=== PATIENT | male | born 1965 | race Two or more races ===

== ENCOUNTER 2022-01-27 20:58 | Emergency (ER) | payer OTHER ==
[~2022-01-27] VITALS: Ht 170.2 cm; Wt 77.1 kg
--- NOTE | 2022-01-27 21:20 | NUR ---
[id number]. R HAND 3RD DIGIT LACERATION BY NUTRIBULLET BLADE. UNKNOWN TETANUS. PT AWAKE A/OX3. TOLERATING R/A WELL WITH NO RESP DISTRESS. SAFETY MEASURES IN PLACE.
[2022-01-27] MEDS ORDERED: LIDOCAINE HCL/MPF 1% 30 ML VIAL IJ ONE (21:48)
[2022-01-27] MEDS ORDERED: ONDANSETRON HCL/PF 4 MG/2 ML VIAL ONE (21:49)
[2022-01-27] MEDS ORDERED: MORPHINE SULFATE INJ 4 MG/ML DISP.SYRIN ONE (21:49)
[2022-01-27] MEDS ORDERED: TDAP [DIPH/PERTUSSIS/TET] 0.5 ML VIAL IM ONE ×2 (21:50→22:00)
[2022-01-27] MEDS ORDERED: LORAZEPAM INJ 2 MG/ML VIAL ONE (21:50)
[2022-01-27] MEDS ORDERED: MORPHINE SULFATE INJ 2 MG/ML DISP.SYRIN IV ONE (22:00)
[2022-01-27] MEDS ORDERED: LORAZEPAM INJ 2 MG/ML VIAL IV ONE (22:00)
[2022-01-27] MEDS ORDERED: ONDANSETRON HCL/PF 4 MG/2 ML VIAL IVP ONE (22:00)
[2022-01-27] MEDS ORDERED: LIDOCAINE 2% 20 ML MDV TP ONE (22:00)
--- NOTE | 2022-01-27 23:01 | NUR ---
LAZARO MAR AT PT'S BEDSIDE FOR SUTURES TO RIGHT THIRD DIGIT.
[2022-01-27] MEDS ORDERED: CEPH500C2 PO (23:16)
--- NOTE | 2022-01-27 23:21 | NUR ---
URINE SENT TO LAB
--- NOTE | 2022-01-27 23:21 | NUR ---
[facility] COLLECTED
[2022-01-27 23:30] LABS: BASOPHILS % (AUTO) 0.4 % (0.0-2.0); EOSINOPHILS % (AUTO) 1.8 % (0.0-6.0); HEMATOCRIT 41 % (39-51); HEMOGLOBIN 13.7 g/dL (13.5-17.5); LYMPHOCYTES # (AUTO) 1.4 K/uL (0.8-4.8); LYMPHOCYTES % (AUTO) 20.6 % (20.0-44.0); MEAN CORPUSCULAR HGB CONC 33 g/dl (31.0-36.0); MEAN CORPUSCULAR VOLUME 89 fL (80-96); MONOCYTES # (AUTO) 0.7 K/uL (0.1-1.30); MONOCYTES % (AUTO) 9.8 % (2.0-12.0); NEUTROPHILS # (AUTO) 4.7 K/uL (1.8-8.9); NEUTROPHILS % (AUTO) 67.4 % (43.0-81.0); PLATELET COUNT (AUTO) 250 K/uL (150-450); WHITE BLOOD COUNT (AUTO) 6.9 K/uL (4.3-11.0)
[2022-01-27] MEDS ORDERED: CEPHALEXIN MONOHYDRATE 500 MG CAPSULE PO ONE (23:30)
[2022-01-27 23:46] LABS: ACETAMINOPHEN 0 ug/ml (10-30); ALANINE AMINOTRANSFERASE 42 U/L (12-78); ALBUMIN 3.4 g/dL (3.4-5.0); ALCOHOL, BLOOD < 3 mg/dL (0-0); ALKALINE PHOSPHATASE 78 U/L (46-116); ASPARTATE AMINOTRANSFERASE 32 U/L (15-37); BILIRUBIN,DIRECT 0.2 mg/dL (0.0-0.2); BILIRUBIN,TOTAL 0.6 mg/dL (0.2-1.0); CALCIUM, SERUM 8.5 mg/dL (8.5-10.1); CARBON DIOXIDE 30 mmol/L (21-32); CHLORIDE 101 mmol/L (98-107); CREATININE 0.8 mg/dL (0.6-1.3); GLUCOSE 95 mg/dL (74-106); POTASSIUM 3.6 mmol/L (3.5-5.1); SODIUM SERUM 135 mmol/L (136-145); TOTAL PROTEIN, SERUM 7.2 g/dL (6.4-8.2); UREA NITROGEN, BLOOD 18 mg/dL (7-18)
[2022-01-27 23:56] LABS: BILIRUBIN,URINE NEGATIVE (NEGATIVE); COLOR,URINE YELLOW (YELLOW); LEUKOCYTE ESTERASE ,URINE NEGATIVE (NEGATIVE); NITRITE, URINE NEGATIVE (NEGATIVE); PH,URINE 6.5 (5.0-8.0); PROTEIN,URINE NEGATIVE (NEGATIVE); UGLUCOSE NEGATIVE (NEGATIVE); UROBILINOGEN,URINE 0.2 EU/dL (0.2)
[2022-01-28] LABS: BACTERIA,URINE Rare /HPF (None Seen); RBC,URINE 0-2 /HPF (0-2); SQUAMOUS EPITHELIAL CELL,UR Few /HPF (None Seen)
--- NOTE | 2022-01-28 06:53 | NUR ---
PT SLEEPIING BUT ARROUSABLE THROUGHOUT THE NIGHT. VSS. PT IN NO ACUTE DISTRESS AT THIS TIME.
--- NOTE | 2022-01-28 07:20 | NUR ---
RECEIVED PT FROM [facility] AND EASY WATING FOR TO BE MORE AWAKE
--- NOTE | 2022-01-28 09:01 | NUR ---
PT ASLEEPY NO SOB OR DISTRESS
[2022-01-28] MEDS ORDERED: CEPHALEXIN MONOHYDRATE 500 MG CAPSULE PO ONE (09:07)
--- NOTE | 2022-01-28 09:45 | NUR ---
FULLY AWAKE AND ALERT D/C INSTRACTION GIVEN TO PT FULLY AND VERBLIZED UNDERSTOOD D/C HOME WITH RX AND FALLOW UP CARE
[2022-01-28 10:07] VITALS: BP 137/87
== END 2022-01-28 10:07 | disposition home or self-care (01) ==
LOC: ER 21:10
DX: S61.212A Laceration without foreign body of right middle finger without damage to nail, initial encounter (principal); R45.1 Restlessness and agitation; R41.82 Altered mental status, unspecified; H54.8 Legal blindness, as defined in USA; F15.10 Other stimulant abuse, uncomplicated; Z60.2 Problems related to living alone; W26.8XXA Contact with other sharp object(s), not elsewhere classified, initial encounter; Y93.89 Activity, other specified; Y92.89 Other specified places as the place of occurrence of the external cause; Y99.8 Other external cause status
CPT/HCPCS: 12041; 99285; 96374; 90471; 96375; 90715; 73140; 85025; 80048; 87086; 80076; 81001; 36415; 80143; 80320; 80307; J2060; J2270; J2405; J3490; G0480